=== PATIENT | female | born 1975 | race Asian ===

== ENCOUNTER 2017-04-28 09:47 | Emergency (ER) | payer OTHER ==
[~2017-04-28] VITALS: Ht 147.3 cm; Wt 50.8 kg
[2017-04-28 11:02] LABS: BILIRUBIN,URINE NEGATIVE (NEGATIVE); CLARITY,URINE CLOUDY (CLEAR); COLOR,URINE YELLOW (YELLOW); KETONES,URINE 3+ (NEGATIVE); LEUKOCYTE ESTERASE ,URINE 2+ (NEGATIVE); NITRITE,URINE NEGATIVE (NEGATIVE); URINE UROBILINOGEN 0.2 mg/dL (0.2 - 1)
[2017-04-28 11:05] LABS: PREGNANCY TEST, URINE NEGATIVE (NEGATIVE); PROTEIN,URINE DIPSTICK 2+ (NEGATIVE)
[2017-04-28 11:39] LABS: BACTERIA,URINE MANY /HPF; EPITHELIAL CELLS,URINE FEW /LPF; MUCUS,URINE FEW (RARE); WBC,URINE (MAN) >50 /HPF (0-5)
[2017-04-28 12:28] VITALS: BP 114/70
== END 2017-04-28 12:38 | disposition home or self-care (01) ==
LOC: ER 09:47
DX: R30.0 Dysuria (principal); N30.90 Cystitis, unspecified without hematuria
CPT/HCPCS: 81001; 81025; 87086; 87186; 99283